=== PATIENT | male | born 1930 | race Caucasian/White ===

== ENCOUNTER 2020-02-09 13:36 | Inpatient (IN) | payer OTHER ==
[~2020-02-09] VITALS: Ht 160 cm; Wt 55.8 kg
[~2020-02-09 13:36] MED LIST: ASA81 MG PO; FOSINOPRIL SODI20 MG PO; LEVOTHROID25 MCG PO; LoPRESSOR 50MG TAB PO; METOPROLOL SUCC50 MG PO; NEURONTIN300 MG PO; ZANTAC150 M1 PO; ZOCOR40 MG PO
[2020-02-09] MEDS ORDERED: METOPROLOL SUCC25 MG PO (14:01)
[2020-02-09] MEDS ORDERED: PENTOXIFYLLINE400 MG PO (14:02)
[2020-02-09] MEDS ORDERED: SIMVASTATIN40 MG PO (14:02)
[2020-02-09] MEDS ORDERED: ARICEPT10 MG PO (14:02)
[2020-02-09] MEDS ORDERED: ASPIR 8181 MG PO (14:02)
[2020-02-09] MEDS ORDERED: TAMS0.4C PO (14:02)
[2020-02-09] MEDS ORDERED: PEPCID AC20 MG PO (14:03)
[2020-02-09] MEDS ORDERED: PAXIL20 MG (14:03)
[2020-02-17] MEDS ORDERED: TAMS0.4C PO (16:17)
[2020-02-17] MEDS ORDERED: SIMVASTATIN40 MG PO (16:17)
[2020-02-17] MEDS ORDERED: POM (MEDICAMENTO EN PO (16:17)
[2020-02-17] MEDS ORDERED: PAXIL20 MG PO (16:17)
[2020-02-17] MEDS ORDERED: PENTOXIFYLLINE400 MG PO (16:17)
[2020-02-17] MEDS ORDERED: ARICEPT10 MG PO (16:17)
[2020-02-17] MEDS ORDERED: GABAPENTIN100 MG PO (16:17)
[2020-02-17] MEDS ORDERED: LOPRESSOR25 MG PO (16:17)
[2020-02-17] MEDS ORDERED: INTESTINEX680 M1 PO (16:17)
[2020-02-17] MEDS ORDERED: PEPCID AC20 MG PO (16:17)
[2020-02-17] MEDS ORDERED: ASA-EC81 MG PO (16:17)
[2020-02-17] MEDS ORDERED: ULTRAM50 MG PO (16:17)
== END 2020-02-17 16:52 | disposition home or self-care (01) | DRG 195 ==
LOC: ER 13:36 → SEC-K 02-10 11:25 → MEDJ 02-10 11:25 → SURG 02-12 18:07 → MEDJ 02-12 20:20 → SURG 02-12 20:25 → SURH 02-13 13:11
PROVIDERS: ADMIT Internal Medicine
PROC: 3E0F7GC Introduction of Other Therapeutic Substance into Respiratory Tract, Via Natural or Artificial Opening (ICD-10-PCS; principal; 2020-02-10)
PROC: 4A033R1 Measurement of Arterial Saturation, Peripheral, Percutaneous Approach (ICD-10-PCS; 2020-02-10)
PROC: 8E0ZXY6 Isolation (ICD-10-PCS; 2020-02-10)
PROC: B24BZZZ Ultrasonography of Heart with Aorta (ICD-10-PCS; 2020-02-10)
PROC: BW20Y0Z Computerized Tomography (CT Scan) of Abdomen using Other Contrast, Unenhanced and Enhanced (ICD-10-PCS; 2020-02-10)
DX: J18.9 Pneumonia, unspecified organism (principal); R91.8 Other nonspecific abnormal finding of lung field; I25.10 Atherosclerotic heart disease of native coronary artery without angina pectoris; I11.9 Hypertensive heart disease without heart failure; J06.9 Acute upper respiratory infection, unspecified; I08.1 Rheumatic disorders of both mitral and tricuspid valves; R50.9 Fever, unspecified; D35.02 Benign neoplasm of left adrenal gland; J43.9 Emphysema, unspecified; Z03.818 Encounter for observation for suspected exposure to other biological agents ruled out